=== PATIENT | female | born 1995 | race Caucasian/White ===

== ENCOUNTER 2019-08-08 13:14 | Emergency (ER) | payer OTHER ==
[2019-08-08 13:33] VITALS: BP 127/62
--- NOTE | 2019-08-08 14:14 | UC ---
Lower Extremity/Ankle HPI - HPI Summary HPI Summary: 23-year-old female presents with complaints of right ankle pain and swelling. States today at work at approximately 11:30 AM she stepped off a curb and accidentally caused an inversion injury to the right ankle. States she felt a "pop" in the lateral aspect of her ankle swelled immediately. She has been able to walk and bear weight with discomfort since the injury. Took acetaminophen 1000 mg just prior to arrival. Denies any numbness or tingling. - History of Current Complaint Chief Complaint: UCLowerExtremity Stated Complaint: RT ANKLE INJURY Time Seen by Provider: 08/08/19 13:19 Hx Obtained From: Patient Hx Last Menstrual Period: 06/07/19 Pain Intensity: 5 - Allergies/Home Medications Allergies/Adverse Reactions: Allergies Allergy/AdvReac Type Severity Reaction Status Date / Time No Known Allergies Allergy Verified 08/08/19 13:29 Home Medications: Home Medications hydrOXYzine HCL TAB* [Atarax 10 MG TAB*] 1 tab TID PRN 08/08/19 [History Confirmed 08/08/19] PMH/Surg Hx/FS Hx/Imm Hx Previously Healthy: Yes - Denies significant PMH - Surgical History Surgical History: Yes Surgery Procedure, Year, and Place: [place] - Family History Known Family History: Positive: Non-Contributory - Social History Occupation: Student Lives: Dormitory/Roommates Alcohol Use: Occasionally Substance Use Type: None Smoking Status (MU): Never Smoked Tobacco Review of Systems All Other Systems Reviewed And Are Negative: Yes Constitutional: Positive: Negative Skin: Negative: Bruising Respiratory: Positive: Negative Cardiovascular: Positive: Negative Gastrointestinal: Positive: Negative Genitourinary: Positive: Negative Motor: Negative: Weakness Neurovascular: Negative: Decreased Sensation Musculoskeletal: Positive: Decreased ROM, Edema, Other: - See HPI Neurological: Positive: Negative Is Patient Immunocompromised?: No Physical Exam - Summary Physical Exam Summary: GENERAL APPEARANCE: Well developed, well nourished, alert and cooperative, and appears to be in no acute distress. CARDIAC: Normal S1 and S2. No S3, S4 or murmurs. Rhythm is regular. There is no peripheral edema, cyanosis or pallor. Extremities are warm and well perfused. Capillary refill is less than 2 seconds. Peripheral pulses intact. LUNGS: Clear to auscultation without rales, rhonchi, wheezing or diminished breath sounds. ABDOMEN: Positive bowel sounds. Soft, nondistended, nontender. No guarding or rebound. No masses or hepatosplenomegally. MUSKULOSKELETAL: Normal muscular development. Normal gait. EXTREMITIES: Tenderness to the lateral malleolus of the right ankle with moderate-severe edema. Diminished ROM d/t pain and swelling. No gross deformity , laxity, or ecchymosis noted. Circulation and sensation intact. SKIN: Skin normal color, texture and turgor. Triage Information Reviewed: Yes Vital Signs: Initial Vital Signs Temp 99 F 08/08/19 13:29 Pulse 96 08/08/19 13:29 Resp 16 08/08/19 13:29 BP 127/62 08/08/19 13:29 Pulse Ox 99 08/08/19 13:29 Vital Signs Reviewed: Yes Diagnostics - Radiology No standard instances Radiology Interpretation Completed By: Radiologist Summary of Radiographic Findings: Order Information: ANKLE RIGHT 3+VWS. HISTORY : pain/swelling lateral ankle s/p inversion injury . COMPARISONS: None relevant available at the time of dictation. VIEWS: 3, Frontal, lateral, and oblique views of the right ankle. FINDINGS: BONE DENSITY: Normal. BONES: There is no displaced fracture. JOINTS: There is no arthropathy. There is a moderate to large effusion of the ankle. ALIGNMENT: There is no dislocation. SOFT TISSUES: There is lateral soft tissue swelling. OTHER FINDINGS: None. IMPRESSION: 1. SOFT TISSUE SWELLING. 2. JOINT EFFUSION. 3. NO ACUTE OSSEOUS INJURY. Lower Extremity Course/Dx - Course Course Of Treatment: 23-year-old female presents with complaints of right ankle pain and swelling. States today at work at approximately 11:30 AM she stepped off a curb and accidentally caused an inversion injury to the right ankle. States she felt a "pop" in the lateral aspect of her ankle swelled immediately. She has been able to walk and bear weight with discomfort since the injury. Took acetaminophen 1000 mg just prior to arrival. Denies any numbness or tingling. Afebrile. Vital signs stable. Patient had tenderness to the lateral malleolus of the right ankle with moderate-severe edema. Diminished ROM d/t pain and swelling. No gross deformity, laxity, or ecchymosis noted. Circulation and sensation intact. X-ray of the ankle showed no acute osseous injury although there was soft tissue swelling and point of effusion present. Recommending conservative treatment for a right ankle sprain including [id number] analgesics and RICE. Patient was placed in an Kem wrap and gel splint by the RN and provided crutches with training to be nonweightbearing 3 days followed by progressive weightbearing as tolerated. She is to follow-up with orthopedic surgery in 5-7 days for further evaluation and treatment especially if there is no improvement in her symptoms. Anticipatory guidance and warning symptoms were reviewed with the patient. Verbalizes understanding and agrees with plan of care. - Differential Dx/Diagnosis Differential Diagnosis/HQI/PQRI: Contusion, Dislocation, Fracture (Closed), Sprain Provider Diagnosis: Right ankle sprain Discharge ED - Sign-Out/Discharge Documenting (check all that apply): Patient Departure All imaging exams completed and their final reports reviewed: Yes - Discharge Plan Condition: Stable Disposition: HOME Patient Education Materials: Ankle Sprain (ED), Crutch Instructions (ED), Ankle Stirrup Splint (ED) Referrals: No Primary Care Phys,NOPCP [Primary Care Provider] - Kris Steele MD [Medical Doctor] - Additional Instructions: The x-ray performed in the clinic today showed no evidence of a fracture. You injury is likely a bad sprain of the ankle. Rest the ankle as much as possible. You should remain non-weight bearing for the next 3 days then may begin to slowly increase weight bearing as tolerated. Use the crutches provided to you in the clinic. Use the KEM wrap applied in the clinic to help reduce swelling. Wear the Stirrup splint that was applied in the clinic until you are pain free. You may remove to shower and sleep but should wear at all other times. Apply ice to the affected area for 15-20 minutes at least 4 times a day to help with the pain and swelling. Elevate the leg to help reduce swelling. Take acetaminophen (Tylenol) or ibuprofen (Advil, Motrin) according to directions as needed for pain. Follow up with orthopedic surgery in 5-7 days for further evaluation especially if symptoms do not improve. Seek immediate medical attention if you have severe pain not managed with pain medication, you are unable to walk or bear any weight, develop numbness or tingling in the foot or toes, or have any worsening of symptoms. - Billing Disposition and Condition Condition: STABLE Disposition: Home
== END 2019-08-08 14:44 | disposition home or self-care (01) ==
LOC: UCCORT 13:14
DX: S93.401A Sprain of unspecified ligament of right ankle, initial encounter (principal); W22.8XXA Striking against or struck by other objects, initial encounter; X50.0XXA Overexertion from strenuous movement or load, initial encounter; Y92.9 Unspecified place or not applicable
CPT/HCPCS: 99203; G0463